=== PATIENT | male | born 2005 | race Caucasian/White ===

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

== ENCOUNTER 2025-04-24 14:51 | Outpatient (AMB) | payer OTHER, SELFPAY ==
--- NOTE | 2025-04-24 14:53 | MHC.OFFVIS ---
Vital Signs 04/24/25 14:54 Weight 157 lb BP 100/72 Blood Pressure Location Lt brachial Position Sitting Pulse 61 Pulse Source Pulse Oximeter Pulse Oximetry (%) 97 Oxygen Delivery Method Room Air Intake Visit Reasons: f/u for Migraines [employer] Nursing Required: No Accompanied by: Mother Allergies No Known Allergies Allergy (Verified 04/24/25 14:56) Medication List - Last Reconciled 04/24/25 by Gabbie Flynn MD magnesium oxide 250 mg PO DAILY methylphenidate HCl 5 mg PO DAILY naratriptan take 1 tab at onset of headache; if no relief may repeat 1 tab after at least 4 hrs; max = 2 tabs/24 hrs PO riboflavin (vitamin B2) 400 mg PO DAILY zolmitriptan (Zomig) 5 mg orally 1 tab at onset repeat in2 hrs if needed max 2tabs a day; 1 tab at onset and repeat once in 2hrs if needed . Maximum 2 tabs a day HPI Comments Details: 19y/o male comes for follow up. He stopped his amitriptyline ( felt disconnected)but his migraines have decreased significantly . Now he has 0-1 headaches /3 months . He is magnesium and Vit B 2 . Visual aura- squiggly lines and blurry vision in the central field and sometimes lights in peripheral vision . It can last 30-60min followed by nausea and headaches. He takes zomig 5mg as needed but takes 30minutes to go away He has improved his sleep hygiene . [facility] Surgical History No pertinent past surgical history Social History Alcohol intake: never Patient Tobacco Use Status: Never used Tobacco Physical Exam Vital Signs: Last Vital Signs Pulse 61 04/24/25 14:54 BP 100/72 04/24/25 14:54 Pulse Ox 97 04/24/25 14:54 Oxygen Delivery Method Room Air 04/24/25 14:54 Const Orientation/consciousness: patient oriented x3 HEENT Head: Yes normal to inspection Face and sinus: Yes normal facial exam Eyes Pupils: Equal, round and reactive pupils present Neuro General: patient oriented x3, gait normal, tone normal, moves all extremities and no focal motor deficits Cranial nerves: Yes Equal, round and reactive pupils present, Yes Normal accommodation reflex present, Yes Bilaterally intact EOM present and Yes Normal facial strength present Assessment & Plan Assessment & Plan (1) Migraine with aura: Code(s): G43.109 - Migraine with aura, not intractable, without status migrainosus Category: Medical Qualifiers: Status migrainosus presence: without status migrainosus Intractability: not intractable Qualified Code(s): G43.109 - Migraine with aura, not intractable, without status migrainosus (2) Arachnoid cyst: Code(s): G93.0 - Cerebral cysts Category: Medical Plan EEG - was normal MRI - left middle cranial fossa cyst Zolmitriptan 5mg as needed. Trial naratriptan 2.5 mgas needed Magnesium 250mg qhs and riboflavin 400mg qam Migraine diary Orders: Orders MR head/brain wo con Today G93.0 - Cerebral cysts Medications: New naratriptan take 1 tab at onset of headache; if no relief may repeat 1 tab after at least 4 hrs; max = 2 tabs/24 hrs PO 10 tabs 6RF Discontinued propranolol Discontinued Reason: Patient no longer taking 10 mg PO BID 60 tabs 0RF Coding Level of Care Code Est Pt Level 4 (36468) Diagnoses Migraine with aura and without status migrainosus, not intractable G43.109 Status migrainosus presence: without status migrainosus Intractability: not intractable Arachnoid cyst G93.0
[2025-04-24 14:54] VITALS: BP 100/72; PULSE 61; O2SAT 97
--- OUTSIDE RECORDS SUMMARY | 2025-04-24 15:25 | XMS_ITS | Clinical Summary ---
Author Organization [facility] Address [address] [place], [place] [id number] Phone Care Team Providers Care Hydrometer Finisher Name Role Phone Phuong Bower Primary Care Provider [phone] Allergies No known active allergies Medications methylphenidate HCl (RITALIN) 5 MG tablet 11/10/2024 Active Social History Tobacco Use Types Packs/Day Years Used Date Smoking Tobacco: Never Assessed Education Answer Date Recorded Are you interested in more education? Not on javi e 12/05/2024 Are you concerned about learning? Not on file 12/05/2024 No 12/05/2024 No 12/05/2024 Digital Access Answer Date Recorded No 12/05/2024 No 12/05/2024 Reliable internet access at home? Not on file 12/05/2024 Device with a working camera? Not on file Sex and Gender Information Value Date Recorded Sex Assigned at Not on file Legal Sex Male 12:37 PM EDT Gender Identity Not on file Sexual Orientation Not on file Last Filed Vital Signs Vital Sign Reading Time Taken Comments Blood Pressure 127/75 12/05/2024 12:48 PM EDT Pulse 82 12/05/2024 12:48 PM EDT Temperature 36.7 C (98.1 F) 12/05/2024 12:48 PM EDT Respiratory Rate 18 12/05/2024 12:48 PM EDT Oxygen Saturation 97% 12/05/2024 12:48 PM EDT Inhaled Oxygen Concentration - - Weight - - Height - - Body Mass Index - - Plan of Treatment Health Maintenance Due Date Last Done Comments MMR VACCINES (1 of 1 - Standard series) 2006 BMI ASSESSMENT 2008 DEVELOPMENTAL/BEHAVIORAL SCREENING (PHQ, PSC, or SWYC) 2008 DEPRESSION SCREENING 2017 COMBINED DTaP,Tdap,Td (2 - T d or Tdap) 01/08/2018 12/11/2017 SMOKING Hx and SMOKELESS TOBACCO SCREENING 2018 VARICELLA VACCINES (1 of 2 - 13+ 2-dose series) 2018 MENINGOCOCCAL VACCINES (B) ( 1 of 2 - Standard) 2021 ADOLESCENT UNIVERSAL LIPID SCREENING 2022 HEPATITIS C SCREENING 2023 HIV ONE-TIME SCREENING (18-6 5 YEARS) 2023 COVID-19 VACCINE (4 - 2023-2 5 season) 2024 10/17/2021, 03/05/2021, 02/12/2021 HEPATITIS B VACCINES (1 of 3 - 19+ 3-dose series) 2024 HPV VACCINES Completed 01/29/2021, 11/10/2019 MENINGOCOCCAL VACCINES (ACWY) Completed , 12/11/2017 HEPATITIS A VACCINES Aged Out No long er eligible based on patient's age to complete this topic HIB VACCINES Aged Out No longer eligi ble based on patient's age to complete this topic PNEUMOCOCCAL VACCINES (0-49 years) Aged Out No longer eligible b ased on patient's age to complete this topic Medical Devices Not on file Insurance [facility] O O O [facility] Care Teams Hydrometer Finisher Relationship Specialty Start Date End Date Phuong Bower PA [address] [place] [id number] PCP - General Physician Utility Tech 12/05/24 Additional Source Comments The information contained in this document represents components of the legal health record. It is not the complete legal health record.[facility]
== END 2025-04-24 15:36 | disposition home or self-care (01) ==
LOC: HO.HSMS 14:51
PROVIDERS: PCP Physician Assistant Medical; Visit Provider Psychiatry & Neurology Neurology
DX: G43.109 Migraine with aura, not intractable, without status migrainosus (principal); G93.0 Cerebral cysts
CPT/HCPCS: 99214

== ENCOUNTER 2025-05-15 08:39 | Outpatient (REF) | payer OTHER, SELFPAY ==
--- NOTE | ~2025-05-15 | MR_ITS ---
EXAMINATION: MR BRAIN WITHOUT CONTRAST CLINICAL INFORMATION: Cerebral cysts COMPARISON: None available. TECHNIQUE: MRI of the brain was obtained using routine sequences without contrast. Examination was performed on a 1.5 Venecia Siemens high-field unit. FINDINGS: There is no diffusion restriction. There is no intracranial hemorrhage, acute infarction, mass effect, or edema. There is a CSF signal arachnoid cyst in the left middle cranial fossa measuring approximately 1.4 x 3.7 x 1.8 cm (AP, TRV, CC). Mild mass effect upon the left anterior temporal lobe without underlying edema present. Ventricles, sulci, and cisterns are otherwise normal in size and configuration for patient age. No shift of midline. No abnormal hemosiderin deposition is identified. There are no white matter signal abnormalities. Midline structures appear normally formed. The pituitary gland appears normal. Posterior fossa structures appear normal. Cerebellar tonsils are appropriately located. Major flow voids are preserved within the skull base. The globes and orbital contents demonstrate no abnormalities. Paranasal sinuses are clear bilaterally. The mastoids and tympanic cavities are normally aerated. Extracranial soft tissues demonstrate no abnormalities. No suspicious bone marrow changes are evident. Atlantoaxial joint is normal. MR/MR head/brain wo con IMPRESSION: 1. No evidence of intracranial hemorrhage, acute infarction, or edema. 2. Left middle cranial fossa arachnoid cyst with mild mass effect on the left anterior temporal lobe as detailed. Electronically signed by: Gustavo Leroy MD 05/15/2025 09:25 AM EDT
--- OUTSIDE RECORDS SUMMARY | 2025-05-15 09:00 | XMS_ITS | Clinical Summary ---
Author Organization [facility] Address [address] [place], [place] [id number] Phone Care Team Providers Care Clinical Mental Health Counselor Name Role Phone Phuong Bower Primary Care Provider [phone] Allergies No known active allergies Medications methylphenidate [...] topic Medical Devices Not on file Insurance [facility] O O O [facility] Care Teams Clinical Mental Health Counselor Relationship Specialty Start Date End Date Phuong Bower PA [address] [place] [id number] PCP - General Physician Central Office Inspector 12/05/24 Additional Source Comments The information contained in this document represents components of the legal health record. It is not the complete legal health record.[facility]
== END 2025-05-15 08:40 | disposition home or self-care (01) ==
LOC: HO.MRI 08:39
PROVIDERS: Visit Provider Psychiatry & Neurology Neurology
DX: G93.0 Cerebral cysts (principal)
CPT/HCPCS: 70551

== ENCOUNTER → 2025-05-15 08:39 | Outpatient (BNV) | payer OTHER, SELFPAY | PROVIDERS: Visit Provider Radiology Diagnostic Radiology | DX: G93.0 Cerebral cysts (principal) | CPT/HCPCS: 70551 ==